=== PATIENT | female | born 1935 | race Caucasian/White ===

== ENCOUNTER 2018-04-11 00:38 | Inpatient (IN) ==
[2018-04-11] MEDS ORDERED: MORPHINE IV ONE ×2 (01:32→01:54)
[2018-04-11] MEDS ORDERED: ZOFRAN ONE ×2 (01:41→12:37)
[2018-04-11] MEDS ORDERED: ZOFRAN IV ONE (01:43)
--- NOTE | 2018-04-11 02:03 | PROVIDER DOCUMENTATION ---
This chart was entered by Karuna Mathew Scribe, acting as scribe for Amaury Nieto MD. HPI-Musculoskeletal Pain/Inj - GENERAL Chief Complaint: Head Injury Stated Complaint: fall Time Seen by Provider: 04/11/18 00:47 Source: patient - HX OF PRESENT ILLNESS-MUSKULOSKELTAL Nature of Presenting Problem: PT is 82/F presenting to ED via EMS. She was at home in her bathroom when her foot got stuck under her bathmat and she fell forward. Landing on her L knee and hitting her head. No LOC. C/O L knee pain at this time. Quality of Pain: reports: aching Severity in ED: severe Onset/Duration: just prior to arrival Timing: still present Modifying Factors: improves with: nothing Any recent injury?: Yes Locality of Occurance: Home Similar Symptoms Previously?: No Recently seen or treated by another doctor?: No - FALL INJURY Location of Pain/Injury: reports: lower extremity (L knee) Pain Radiation: reports: no radiation Reason for Fall: reports: lost balance Symptoms prior to fall:: reports: none Loss of Consciousness: no loss of consciousness Injury Associated Symptoms: reports: nausea. denies: vomiting Review of Systems - Adult - REVIEW OF SYSTEMS - ADULT Constitutional: reports: no symptoms reported Eyes: reports: no symptoms reported Ears, Nose, Mouth & Throat: reports: no symptoms reported Cardiovascular: reports: no symptoms reported Respiratory: reports: no symptoms reported Gastrointestinal: reports: nausea. denies: vomiting, other Genitourinary: reports: no symptoms reported Musculoskeletal: reports: no symptoms reported Integumentary: reports: no symptoms reported Neurological: reports: no symptoms reported. denies: dizziness/vertigo, headache/migraines Psychiatric: reports: no symptoms reported Endocrine: reports: no symptoms reported Hematologic/Lymphatic: reports: no symptoms reported Allergic/Immunologic: reports: no symptoms reported All Other Systems: Reviewed and Negative Past History - Adult - PAST MEDICAL HISTORY-ADULT Review of Records: reports: Old Records Reviewed, Nursing Assessment Review, Medications Reviewed, Social history reviewed & non-contributory. Major Childhood Illnesses: reports: denies history Cardiovascular: reports: HTN, hyperlipidemia Respiratory: reports: denies history Gastrointestinal: reports: denies history Obstetrical/Gynecological: reports: denies history Genitourinary: reports: kidney disease Musculoskeletal: reports: denies history Neurological: reports: denies history Psychiatric: reports: denies history Endocrine/Immune: reports: denies history Other Conditions: reports: denies history - PRIOR SURGERIES/PROCEDURES Surgical/Procedure History: reports: hysterectomy - PRIOR HOSPITALIZATIONS Prior Hospitalizations: reports: none - IMMUNIZATION STATUS Childhood Immunizations: See Nurse Assessment Flu Vaccine: See Nurse Assessment - FAMILY HISTORY Family History: reviewed, not pertinent - SOCIAL HISTORY Smoking: denies, non-smoker Provider spent 3-5 mins advising pt. on dangers of tobacco.: Discussed manners to quit use, and f/u contacts for add'l counseling. Substance Use: none/never Alcohol Use Frequency: never Physical Exam-Injury Related - Physical Exam-Injury Related Initial Vital Signs Reviewed: Yes General Appearance: appears well, alert, no apparent distress Eyes: PERRL/EOMI Head, Ears, Nose, Mouth & Throat: normocephalic/atraumatic, moist mucous membranes, normal ENT inspection, TMs normal Neck: non-tender, full range of motion, supple, normal inspection Respiratory: chest non-tender, lungs clear, normal breath sounds Cardiovascular: normal peripheral pulses, regular rate, rhythm, no edema Extremity: swelling, tenderness, other (L leg significantly swollen on medial side exquisitely tender to palpation, limited ROM due to pain. local erythema extending to mid thigh.) Progress - PLAN OF CARE/RESULTS Progress/Plan/Lab Results: Vital Signs - 8 hr 04/11/18 00:53 Temperature 98.9 F Pulse Rate 62 Respiratory Rate 20 Blood Pressure 167/71 O2 Sat by Pulse Oximetry 98 Orders Category Date Time Status Knee Immobilizer .left Care 04/11/18 01:56 Active NPO Diet 04/11/18 01:[address] HEAD/C-SPINE W/O CONTRAST [CT] Stat Exams 04/11/18 00:36 Taken KNEE 3 VIEWS LEFT [RAD] Stat Exams 04/11/18 00:43 Taken Morphine Med 04/11/18 01:32 Discontinued 4 mg IV NOW ONE Morphine Med 04/11/18 01:54 Discontinued 4 mg IV NOW ONE Ondansetron [Zofran] Med 04/11/18 01:41 Discontinued 4 mg .ROUTE .STK-MED ONE Ondansetron [Zofran] Med 04/11/18 01:43 Discontinued 4 mg IV NOW ONE A/P: Pt fell has severely angulated distal femur fracture abuts to patella comminuted . Dr Reid was notfied and will admit to hospital service and do surgery in am. Patient vitals stable, pain controlled and given zofran for N/V. - XRAY 1 XRAY: Left XRAY Study: Knee Impression: Abnormal (read by ER doc, severely angulated distal femur fx. buts up to patella, communited) - CT/MRI 1 CT Study: Head Impression: Normal (1.no acute intracranial findings, 2.Minor right forehead soft tissue swelling cervical spine without contrast: 1. Degenerative changes of cervical spine with no acute fracture) - CONSULTS/PCP/HOSPITALIST Notification #1 *Consult/PCP/Hospitalist*: Dr. Rush (Ortho) Time Discussed: 00:45 Reason/Comments: Pt will be admitted Consult Disposition: Admit #2 Consult: Dr Do Time Discussed: 00:56 Consult Disposition: Admit Departure - Departure Date of Disposition Decision: 04/11/18 Time of Disposition Decision: 02:03 DIAGNOSIS: Femoral distal fracture Disposition: ADMITTED INPATIENT 09 Certified Medical Emergency: Emergent Condition: Stable Additional Freetext Instructions: We have examined and treated you today on an emergency basis only. This was not a substitute for, or an effort to provide, complete medical care. In most cases, you must let your doctor check you again. Tell your doctor about any new or lasting problems. We cannot recognize and treat all injuries or illnesses in one Emergency Department visit. If you had special tests, such as X-rays or CT scans, will be reviewed by radiologist and will call you if there are any new suggestions Follow up with primary care provider in 1 to 2 days if no improvement. If you do not have a primary care provider, you need to choose one as soon as possible. Take medicines as prescribed. Monitor for any side effects or adverse events from medications. If any side effect, adverse event or rash develops, or if you suspect any other adverse reaction to the medication, then discontinue the medication immediately and contact clinic /PCP or go to the nearest ER. Narcotic meds / sedative meds instruction - patent advised not to drive, operate any machinery or go into water after taking meds as it may impair mental ability to react to the situation in an appropriate manner. Continue other current medicines. Follow up with PCP within 24-48 hours, or sooner if symptoms worsen or fail to improve. Patient / guardian verbalizes understanding of treatment plan, medication, and side effects and agrees with treatment plan. Patient leaves ER in stable condition and ambulatory state. Return to ER as needed. Discharge instructions reviewed verbally and given to patient in written form. Follow up with primary care provider. Referrals and Follow-Ups: Bello Neri MD [Primary Care Provider] - - Critical Care Note This patient required my direct & personal management of CC.: No Attestation - Physician/ ONEAL Attestation Patient care was provided by Advanced Practice Provider:: No The physician spent face to face time with patient:: Yes Advanced Practice Provider documentation review:: Supervising physician onsite and consulted in the evaluation and care of this patient. The physician did have a face to face encounter with the patient. This chart was documented by the indicated scribe, (Karuna Mathew, Scribe) and accurately reflects the services I performed and decisions made by me, Amaury Nieto MD, as attested by the provider's signature.
[2018-04-11] MEDS ORDERED: VERSED IV ONE ×2 (02:08→02:30)
[2018-04-11] MEDS ORDERED: VERSED ONE (02:21)
[2018-04-11 03:06] LABS: URINE SOURCE CATH
[2018-04-11 03:10] LABS: BASO# 0.07 X1000 (0.0-0.2); BASO% 0.4 % (0.0-0.8); EOS# 0.29 X1000 (0.0-0.7); EOS% 1.7 % (0.0-10.0); HEMATOCRIT 38.6 % (37.0-47.0); HEMOGLOBIN 12.3 g/dL (12.0-16.0); IMM GRAN# 0.24 X1000 (0.0-0.04); IMM GRAN% 1.4 % (0.0-0.5); LYMPH# 2.93 X1000 (1.2-3.4); LYMPH% 16.7 % (20.5-51.1); MCH 28.7 PG (27-31); MCHC 31.9 g/dL (33-37); MCV 90.2 FL (81-99); MONO% 6.8 % (1.7-9.3); MPV 9.8 FL (7.4-10.4); PLT 270 X1000 (130-400); RBC 4.28 XMIL (4.2-5.4); RDW 13.3 % (11.5-14.5); WBC 17.53 X1000 (4.8-10.8)
[2018-04-11 03:17] LABS: INR 0.92; PROTIME 13.1 Seconds (11.0-16.0)
[2018-04-11 03:18] LABS: BILIRUBIN URINE NEGATIVE (NEGATIVE); BLOOD URINE NEGATIVE (NEGATIVE); COLOR YELLOW; GLUCOSE URINE NEGATIVE (NEGATIVE); KETONE URINE NEGATIVE (NEGATIVE); LEUKOCYTES URINE TRACE (NEGATIVE); NITRITE URINE NEGATIVE (NEGATIVE); PH URINE 6.5; PROTEIN URINE 100 mg/dL (NEGATIVE); SP GRAVITY URINE 1.016; TURBIDITY URINE CLEAR (CLEAR); UR EPITHELIAL CELLS <10 /HPF (<10); URINE BACTERIA NEGATIVE /HPF; URINE RBC <10 /HPF (<10); URINE WBC <10 /HPF (<10); UROBILINOGEN URINE NORMAL (NORMAL)
[2018-04-11 03:36] LABS: ALBUMIN 3.6 g/dL (3.5-5.0); CALCIUM 9.2 mg/dL (8.8-10.2); CREATININE 1.2 mg/dL (0.5-0.9); POTASSIUM 5.1 mmol/L (3.5-5.1); TOTAL BILIRUBIN 0.21 mg/dL (0.20-1.00); TOTAL PROTEIN 7.2 g/dL (6.3-8.3)
[2018-04-11] MEDS ORDERED: POTASSIUM CHLORIDE 10 MEQ in NS 1,000 ML IV SCH (03:38)
[2018-04-11] MEDS ORDERED: TYLENOL PO PRN (03:38)
[2018-04-11] MEDS ORDERED: ZOFRAN IV PRN (03:38)
[2018-04-11] MEDS ORDERED: TESSALON PO PRN (03:38)
[2018-04-11] MEDS: DILAUDID IV PRN ×4 (03:57→19:07)
[2018-04-11 04:01] LABS: PTT 26.9 Seconds (22.3-41.8)
--- NOTE | 2018-04-11 04:38 | HISTORY AND PHYSICAL ---
PHYSICIAN: Patient of Dr. Bello Neri. REASON FOR ADMISSION: Fall with subsequent left thigh pain. HISTORY OF PRESENT ILLNESS: Ms. Ngoc Beavers is an 82-year-old lady with past medical history of vascular dementia, hypertension, hyperlipidemia, CKD stage 3, type 2 diabetes , prior TIA, ulcerative colitis. States that she was trying to make her way to the bathroom when she tripped over one of her rugs and landed directly on her knee with subsequent intense pain just above her knee a few seconds after landing on the floor. Says the pain is sharp. She rates it as a 15 out of 10 and states that she had a Life Alert bracelet on and contacted the EMS via that bracelet. She said she has been in the ER she has received 8 mg of morphine and her pain is still above 10. She denies any contact of her head with the floor, any loss of consciousness, any antecedent cardiorespiratory symptoms. She otherwise was in her usual state of health prior to this injury. REVIEW OF SYSTEMS: Notable for urge incontinence. She has no diarrhea or abdominal complaints at this time. No polyuria or polydipsia. No cardiorespiratory complaints. ALLERGIES: No known allergies. MEDICATIONS: Home medications include Lipitor 10 mg daily, Tessalon 200 mg t.i.d., Fioricet 1 q.4 p.r.n., Omnicef 200 mg q.12, Flexeril 10 mg t.i.d., Cymbalta 60 mg daily, Hydromet 5 mL q.4 p.r.n., Hyzaar 50/12.5 mg daily, Singulair 10 mg daily, Macrobid 100 mg q.12, potassium gluconate 99 mg daily. SURGICAL HISTORY: Breast lump excision which was benign, cataract surgery, right hand surgery, hysterectomy, cholecystectomy. FAMILY HISTORY: Notable for breast cancer and heart disease in first-degree relatives. SOCIAL HISTORY: She stopped smoking over 5 years ago. No alcohol or illicit drug use. Lives alone. LAB WORK: Still pending as of this time, but knee x-ray showed an angulated fracture of the distal femur just above the knee. The head CT without contrast does not show any acute intracranial bleed. There is some degree of cerebral atrophy otherwise. C- spine read by me. I did not visualize any overt fracture. EKG was ordered and is still pending. PHYSICAL EXAMINATION: VITAL SIGNS: Blood pressure 167/71, heart rate 62, respirations 20, temperature is 98.9, 98% on 2 L. GENERAL: She is a pleasant, overweight elderly woman who is in mild distress from her pain. She is oriented to person, place and time. HEENT: Head is normocephalic, atraumatic. Eyes: PERRL. EOMI. She is anicteric and mildly pale. ENT and oropharynx exam is grossly normal. No sign of cyanosis. NECK: Short and thick. No JVD or carotid bruit. No thyromegaly CHEST: Clear when auscultated with good entry in both lung caba. CARDIOVASCULAR: First and second heart sounds heard. There is a 3/6 systolic murmur radiating to the neck. Rhythm is regular. ABDOMEN: Protuberant, soft. No tenderness or megaly. Bowel sounds are normal with an abdominal bruit heard. EXTREMITIES: The patient's left lower extremity has some sheets underneath her popliteal area. I do not see any overt bleeding on the anterior portion of her thigh and knee. She is able to wiggle her toes, but she is in excruciating pain when she tries to do any other movement. There are very good distal pulses in all extremities and they are regular, symmetrical. No clubbing, peripheral cyanosis or edema. NEUROLOGICAL: No gross focal deficits although left lower extremity could not be fully examined for obvious reasons. SKIN: Intact with no breakdown, lesion or erythema. MUSCULOSKELETAL: Exam essentially normal otherwise. ASSESSMENT: 1. Distal left femur fracture. 2. Type 2 diabetes. 3. Aortic stenosis. 4. Hypertension. 5. Probable chronic kidney disease. 6. Ulcerative colitis, stable. 7. Hyperlipidemia. PLAN: Dr. Rush was consulted and wants knee immobilized. We will switch patient from morphine to Dilaudid for better pain control. Patient's lab work is still pending as of this time and if there are any gross abnormalities these will be addressed accordingly. EKG is pending. Diabetes will be managed with sliding scale. Continue antihypertensives. Although patient has aortic stenosis, she does not have any symptoms suggestive of heart failure at this point in time. Monitor patient's labs closely and her cardiovascular status preoperatively. cc: MD Bello Rodriguez MD [facility]
--- NOTE | 2018-04-11 06:15 | Diag Imaging Result Doc PS360 ---
EXAM: KNEE 3 VIEWS LEFT HISTORY: fall TECHNIQUE: Left knee, three views COMPARISON: None. FINDINGS: There is a comminuted fracture to the distal femur with compaction. There is angulation of approximately 45 degrees to the shaft and the femoral condyles. IMPRESSION: Fracture to the distal femur Electronically signed by Cliff Matson 04/11/2018 6:13 AM
--- NOTE | 2018-04-11 06:35 | CONSULTATION ---
DATE OF CONSULTATION: 04/11/2018 CHIEF COMPLAINT: Left knee pain. HISTORY OF PRESENT ILLNESS: Ms. Beavers is an 82-year-old female who fell last night. She ended up presenting to the emergency department where they did x-rays and they found a distal femur fracture. She was admitted per the hospitalist service. Most of her pain is at the knee. It is worse with any movement. It does feel better when she is off of it. PAST MEDICAL HISTORY: Chronic kidney disease, hyperlipidemia, hypertension, vascular dementia, type 2 diabetes, and ulcerative colitis. PAST SURGICAL HISTORY: Cataract surgery, she had a right hand surgery, hysterectomy, cholecystectomy, and a lump excision from the breast. SOCIAL HISTORY: She stopped smoking about 5 years ago. She denies any alcohol or nicotine use at this point. MEDICATIONS: Per the medical record. ALLERGIES: No known drug allergies. REVIEW OF SYSTEMS: Positive for this left knee pain. All other systems are essentially negative. PHYSICAL EXAMINATION: General: A well-developed, well-nourished female. She is in no acute distress, lying in her hospital bed. Head and Neck: Normocephalic, atraumatic. Respirations: Nonlabored breathing. Cardiovascular: Regular rate. Abdomen: Nondistended. Extremities: On left lower extremity exam, she has tenderness to palpation at the knee. She has good dorsiflexion and plantar flexion of the toes and the foot, and a 2+ DP pulse. Good sensation to light touch to the toes. RADIOGRAPHS: Radiographs show a left distal femur fracture that is angulated and somewhat shortened. ASSESSMENT: Left distal femur fracture. PLAN: I discussed with Ms. Beavers about going to surgery today for an open reduction and internal fixation. I went over with her the procedure, risks, benefits, and potential complications. Risks include, but are not limited to infection, wound healing problems, damage to nerves, arteries, veins, numbness, malunion, nonunion, hardware related issues, continued pain, DVT, and anesthesia related risks. After discussing these with the patient, she expressed understanding and wished to proceed. She is n.p.o. today and we will hopefully get this done around noon today. She is nonweightbearing to the left lower extremity. cc: Jamir Rush MD
[2018-04-11] MEDS: HUMALOG SUBQ SCH ×4 (06:42→21:31)
--- NOTE | 2018-04-11 07:18 | Diag Imaging Result Doc PS360 ---
EXAM: CT HEAD/C-SPINE W/O CONTRAST INDICATION: fall TECHNIQUE: This exam was performed using automated exposure control, adjustment of mA or kV according to patient size, and/or use of iterative reconstruction technique. COMPARISON: None. FINDINGS: Head: There is mild diffuse brain atrophy and patchy low attenuation in the periventricular and subcortical white matter suggesting mild microangiopathy. There is no definite acute infarct given the limited sensitivity of CT versus MRI. There is no discrete intracranial mass, mass effect, or intracranial hemorrhage. There is mild scalp edema anteriorly on the right. The calvaria is intact. C-spine: There is multilevel mild to moderate degenerative disc disease with loss of disc space height and small marginal osteophyte formation, most significant at and below the C5-6 level. There is also facet arthropathy at several levels. This is causing mild anterolisthesis of C3 on C4 and C4 on C5. The central canal appears to be largely patent. Otherwise, there is no discrete fracture, subluxation, or intrinsic osseous lesion. The surrounding soft tissues are essentially unremarkable. IMPRESSION: 1.No evidence of acute intracranial pathology. 2.[id number] degenerative changes but no evidence of fracture or other definite acute C-spine injury. Electronically signed by Norman Akins 04/11/2018 7:15 AM
--- NOTE | 2018-04-11 07:32 | EKG Report ---
Test Performed on : 04/11/2018 07:25:12 AM Test Reason : aortic stenosis preop Blood Pressure : / mmHG Vent. Rate : 107 BPM Atrial Rate : 107 BPM P-R Int : 170 ms QRS Dur : 074 ms QT Int : 334 ms P-R-T Axes : 050 -07 064 degrees QTc Int : 445 ms Sinus tachycardia. Otherwise normal ECG When compared with ECG of 10-FEB-2016 10:45, Vent. rate has increased BY 38 BPM T wave amplitude has increased in Inferior leads T wave amplitude has increased in Anterolateral leads Confirmed by Antonio GRAHAM, Mansoor Souza ([id number]) on 04/11/2018 8:54:19 AM
[2018-04-11] MEDS ORDERED: POTASSIUM GLUCONATE 99 MG PO SCH (09:00)
[2018-04-11] MEDS: CYMBALTA PO SCH (10:51)
[2018-04-11] MEDS: LIPITOR PO SCH (10:52)
[2018-04-11] MEDS: HYZAAR 50/12.5 MG PO SCH (10:52)
[2018-04-11] MEDS ORDERED: XYLOCAINE-MPF 2% ONE (11:05)
[2018-04-11] MEDS ORDERED: DIPRIVAN 1% ONE (11:05)
[2018-04-11] MEDS: NS 1,000 ML IV SCH (11:13)
--- NOTE | 2018-04-11 11:14 | PROGRESS NOTE ---
DATE: 04/11/2018 SUBJECTIVE: This morning Ms. Beavers refers to be doing fairly okay. She has 2 family members in the room with her. Both of them are her in nieces. OBJECTIVELY: Vitals: Ms. Beavers's blood pressure is 98/54, pulse is 109, respiration is 90%, temperature 98.1 degrees. General: Ms. Beavers is an 82-year-old morbidly obese, female, with a BMI of 32. She is in bed, no distress. HEENT: Mucosa is pink and moist. Anicteric. Acyanotic. Neck: Neck is supple. Chest: Good air entry bilaterally. There are no crepitations, no rhonchi. Cardiovascular: Regular rate and rhythm. No murmurs, no rubs, no gallops. Abdomen: Soft, nontender. Bowel sounds present. Extremities: No pedal edema. The left knee continues to be in orthopedic cast. SOCIAL SERVICES ANALYST: Patient is awake and alert. Follows basic commands. She was able to recognize her nieces. LABORATORY DATA: WBC 17.53, hemoglobin is 12.3, platelet count of 270,000. Chemistry is also reviewed. Creatinine is 1.2. Medications have also been reviewed. IMAGING: A knee x-ray which was done early this morning shows a fracture to the distal femur. ASSESSMENT: 1. Status post mechanical fall resulting in a distal left femur fracture with angulation. Patient has been evaluated by Orthopedics and there is a plan for ORIF today. 2. Chronic kidney disease stage IIIA noted. 3. History of diabetes mellitus. We will continue with sliding scale insulin for now. We will also check the patient's A1c. 4. Hypertension, controlled. 5. History of ulcerative colitis, stable. 6. Mild aortic stenosis on echo. Patient is currently asymptomatic. 7. Morbid obesity with suspected obstructive sleep apnea. PLAN: So in general, Ms. Taylor is an elderly lady who has been fairly self- sufficient and independent at home, sustained a fall last night, came to the emergency department and was found to have a distal angulated fracture of the left distal femur, and she is pending surgery today. She definitely has multiple comorbidities, including diabetes, hypertension, obesity, suspected sleep apnea, and mild aortic stenosis, which puts her at moderate to high surgical risk candidate for a nonvascular orthopedic intervention. However, we think the surgery is emergent and needs to proceed. I have discussed this plan with the patient and the 2 nieces at the bedside, and they are all aware about the patient's surgical risk. They also do approve the surgery. cc: Dale Suresh MD MTDD
[2018-04-11] MEDS ORDERED: XYLOCAINE 1% ONE (11:16)
[2018-04-11] MEDS ORDERED: MARCAINE 0.5% ONE (11:17)
[2018-04-11] MEDS ORDERED: ROBINUL ONE (11:19)
[2018-04-11] MEDS ORDERED: KEFZOL 2 GM/D5W 2 GM/50 ML IVPB ONE (12:06)
[2018-04-11] MEDS ORDERED: DECADRON ONE (12:37)
--- NOTE | 2018-04-11 13:46 | OPERATIVE NOTE ---
PROCEDURE DATE: 04/11/2018 PREOPERATIVE DIAGNOSIS: Left supracondylar/intercondylar femur fracture. POSTOPERATIVE DIAGNOSIS: Left supracondylar/intercondylar femur fracture. PROCEDURE: Left open reduction-internal fixation distal femur. SURGEON: Dr. Jamir Rush. CORPORATE RECEPTIONIST: SULMA Torre who was an integral part of the case. She helped with all aspects of the case. She helped increase our OR efficiency greatly. ANESTHESIA: General with LMA. TOURNIQUET TIME: Less than an hour. IMPLANTS: Synthes distal femur condylar locking plate and screws. DISPOSITION: PACU hemodynamically stable. INDICATION FOR PROCEDURE: Ms. Taylor, an 82-year-old female who suffered a fall and distal femur fracture. She was admitted per the hospitalist service. I discussed with her and her family about operative intervention. They expressed their understanding wished to proceed. DETAILS OF OPERATION: Ms. Beavers was identified in the preoperative holding area. The left knee was marked as the correct surgical site. She was then wheeled to the operating room, placed supine on the operating table. All bony prominences well padded. She was induced under general anesthesia. LMA was placed. Left lower extremity was then prepped with chlorhexidine, gluconate scrub and then ChloraPrep, and draped in normal sterile fashion. Surgical pause was performed. We identified the correct patient, correct side, and the correct procedure. Preop antibiotics were given. Esmarch was used to exsanguinate the left lower extremity and a sterile tourniquet was applied to the thigh and inflated to 300 mmHg. I started with a distal incision laterally at the knee. Dissection was carried down through the IT band and could easily identify our fracture site. I did subvastus approach and ended up pulling some good traction and that helped align those condyles back up where they needed to be. There was an intercondylar split, but her joint line overall lined up great. So after we got it out to length and alignment everything looked good, I then put the plate on and secured it temporarily with guidewires. I then started with the big middle screw on the condylar locking plate to really lag in that medial condyle, and after we got that lagged in, then we did a locking screws distally and then I did a combination of locking and nonlocking screws proximally. Final images showed that we had good alignment. There is just a little bit of a spike off of the medial condyle. The joint itself actually looked really good. Lateral view looked great as well. We got her out of her flexed position. All the hardware looked to be in good position as well. We then irrigated everything copiously with normal saline. 0 Vicryl was used to close the fascia layer, 2-0 Vicryl for the subcutaneous and gilmer on the skin. Adaptic, 4x4s, ABD, soft roll, and a knee immobilizer was applied. Tourniquet was let down. Patient had good capillary refill return to the toes. She was then wheeled from general anesthesia, moved to her own bed and taken to the PACU in stable condition. Postop, she will be nonweightbearing left lower extremity. She will start working with physical therapy, getting up and moving while in the hospital and we will continue to follow her. cc: Jamir Rush MD
[2018-04-11] MEDS: TYLENOL PO SCH ×2 (15:05→21:30)
[2018-04-11] MEDS: KEFZOL 1 GM/D5W 1 GM/50 ML IVPB IV SCH (20:00)
[2018-04-11] MEDS: OXY IR PO PRN (21:29)
[2018-04-11] MEDS: COLACE PO SCH (21:30)
[2018-04-12] MEDS: DILAUDID IV PRN ×2 (00:37→05:44)
[2018-04-12] MEDS: KEFZOL 1 GM/D5W 1 GM/50 ML IVPB IV SCH ×2 (05:17→12:50)
[2018-04-12] MEDS: NS 1,000 ML IV SCH ×3 (05:18→21:52)
[2018-04-12 06:22] LABS: BASO# 0.02 X1000 (0.0-0.2); BASO% 0.1 % (0.0-0.8); HEMATOCRIT 32.2 % (37.0-47.0); HEMOGLOBIN 9.9 g/dL (12.0-16.0); IMM GRAN# 0.15 X1000 (0.0-0.04); IMM GRAN% 0.9 % (0.0-0.5); LYMPH# 2.25 X1000 (1.2-3.4); LYMPH% 13.9 % (20.5-51.1); MCH 28.6 PG (27-31); MCHC 30.7 g/dL (33-37); MCV 93.1 FL (81-99); MONO# 1.91 X1000 (0.11-0.59); MONO% 11.8 % (1.7-9.3); MPV 9.8 FL (7.4-10.4); NEUT# 11.87 X1000 (1.4-6.5); NEUT% 73.3 % (42.2-75.2); PLT 249 X1000 (130-400); RBC 3.46 XMIL (4.2-5.4); RDW 13.7 % (11.5-14.5)
[2018-04-12 07:06] LABS: CALCIUM 7.9 mg/dL (8.8-10.2); CREATININE 2.2 mg/dL (0.5-0.9); POTASSIUM 5.3 mmol/L (3.5-5.1)
[2018-04-12] MEDS: TYLENOL PO SCH ×3 (07:17→21:51)
--- NOTE | 2018-04-12 08:01 | PROGRESS NOTE ---
DATE: 04/12/2018 SUBJECTIVE: Ms. Beavers is lying in the bed this morning. Overall feeling okay. OBJECTIVE: On left lower extremity exam, the brace is intact to the left knee. Dressing is clean, dry, and intact. She is able to move the toes up and down. She has good sensation to light touch to the toes. ASSESSMENT: Status post left distal femur open reduction and internal fixation. PLAN: Ms. Beaevrs is nonweightbearing to the left lower extremity. I do want her to mobilize today, get out of bed. The Claudio should come out today as well. I am going to get her up and moving. She does have chronic kidney disease and so the medicine team will be watching that. We will plan on her being nonweightbearing for about a month at least on this knee. More than likely, it will be 6 weeks. cc: Jamir Rush MD
[2018-04-12] MEDS: HUMALOG SUBQ SCH ×4 (09:03→21:53)
--- NOTE | 2018-04-12 10:07 | PROGRESS NOTE ---
DATE: 04/12/2018 SUBJECTIVE: Ms. Beavers is a patient of Dr. Bello Neri. She had a fall with subsequent left thigh pain and presented on 04/11/2018 with distal left femur fracture. She has underlying diabetes mellitus type 2, aortic stenosis, hypertension, probable chronic kidney disease, ulcerative colitis and hyperlipidemia. She was followed by Dr. Rush who did surgery on 04/11/2018, left open reduction, internal fixation of distal femur. She is making good progress. The [facility]. OBJECTIVE: Vitals: Temperature 98.4 degrees, pulse 80, respirations 20, blood pressure 123/54. Eyes: Pupils are equal and round. Lungs: Clear in all lung caba. Cardiovascular: Regular rhythm and rate without murmur or S3. Abdomen: Soft. Skin: Warm and dry. URINE OUTPUT: Less than 700 mL. ASSESSMENT AND PLAN: 1. Status post mechanical fall resulting in a distal femur fracture, status post open reduction, internal fixation. The fracture had some angulation. Continue rehab. Hope to go to [facility] for rehab. 2. Chronic kidney disease, stage 3A. 3. Diabetes mellitus type 2. Continue to follow sugars on sliding scale. 4. Hypertension. 5. History of ulcerative colitis. 6. Mild aortic stenosis per echocardiogram. Currently asymptomatic. 7. Morbid obesity. Suspect some obstructive sleep apnea. She has been self-sufficient and independent at home, so we are hoping to get her back to that. Her family was here. She had a distal angulated fracture of the left distal femur. 8. Review of her orders, I do not see any change. cc: Edwin Gurrola MD
[2018-04-12] MEDS: CYMBALTA PO SCH (10:28)
[2018-04-12] MEDS: OXY IR PO PRN ×3 (10:28→21:51)
[2018-04-12] MEDS: LIPITOR PO SCH (10:28)
[2018-04-12] MEDS: HYZAAR 50/12.5 MG PO SCH (10:29)
--- NOTE | 2018-04-12 17:49 | Diag Imaging Result Doc PS360 ---
EXAM: CHEST-PORTABLE 04/12/2018 HISTORY: REHAB PLACEMENT TECHNIQUE: AP portable at 1702 COMMENT: Considering differences in technique there has been no significant change since 01/12/2018. IMPRESSION: Stable chest. Electronically signed by Jeremy Lopez 04/12/2018 5:47 PM
[2018-04-12] MEDS: COLACE PO SCH (21:52)
[2018-04-13] MEDS: NS 1,000 ML IV SCH ×2 (03:53→10:50)
[2018-04-13 06:15] LABS: HEMATOCRIT 27.6 % (37.0-47.0); HEMOGLOBIN 8.7 g/dL (12.0-16.0)
[2018-04-13] MEDS: HUMALOG SUBQ SCH ×4 (07:00→22:47)
[2018-04-13] MEDS: TYLENOL PO SCH ×3 (08:15→21:09)
[2018-04-13] MEDS: LIPITOR PO SCH (09:00)
[2018-04-13] MEDS: HYZAAR 50/12.5 MG PO SCH (09:01)
[2018-04-13] MEDS: CYMBALTA PO SCH (09:01)
--- NOTE | 2018-04-13 11:03 | PROGRESS NOTE ---
DATE: 04/13/2018 SUBJECTIVE: Ms. Taylor is resting comfortably. She was easy to arouse. She is making progress, tolerating physical therapy. OBJECTIVE: Vital Signs: Temperature 99.4 degrees, pulse 100, respirations 19, blood pressure 153/52. Urine output 6300 mL. HEENT: Pupils are equal and round. Lungs: Clear in all lung caba. Cardiovascular: Regular rhythm and rate without murmur or S3. Abdomen: Soft. Skin: Warm, dry. LABORATORY DATA: Blood sugar 181, 131, 149. DIAGNOSTIC STUDIES: Chest x-ray: Stable chest. No significant change from 01/12/2018. ASSESSMENT AND PLAN: 1. Status post mechanical fall resulting in distal femur fracture, status post open reduction and internal fixation. It was an angulated fracture. She is doing well. Plan is to go [facility] if a place opens up. 2. Chronic kidney disease stage IIIA. 3. Hypertension. 4. Ulcerative colitis. 5. Mild aortic stenosis. Currently asymptomatic. 6. Morbid obesity. She does have history of obstructive sleep apnea. The plan is to try and get her to [facility] and possibly an opening tomorrow. Will continue present orders. cc: Edwin Gurrola MD
[2018-04-13] MEDS: COLACE PO SCH (21:09)
[2018-04-14 06:47] LABS: HEMATOCRIT 27.6 % (37.0-47.0); HEMOGLOBIN 8.7 g/dL (12.0-16.0)
[2018-04-14] MEDS: HUMALOG SUBQ SCH ×2 (07:03→13:37)
[2018-04-14] MEDS: TYLENOL PO SCH ×2 (07:03→13:49)
[2018-04-14 08:17] LABS: URINE SOURCE CLEAN CATCH
[2018-04-14 08:19] LABS: BILIRUBIN URINE NEGATIVE (NEGATIVE); BLOOD URINE NEGATIVE (NEGATIVE); COLOR YELLOW; GLUCOSE URINE NEGATIVE (NEGATIVE); KETONE URINE NEGATIVE (NEGATIVE); LEUKOCYTES URINE NEGATIVE (NEGATIVE); NITRITE URINE NEGATIVE (NEGATIVE); PH URINE 6.5; PROTEIN URINE 30 mg/dL (NEGATIVE); TURBIDITY URINE CLEAR (CLEAR); UROBILINOGEN URINE NORMAL (NORMAL)
[2018-04-14 08:20] LABS: UR EPITHELIAL CELLS <10 /HPF (<10); URINE BACTERIA NEGATIVE /HPF; URINE RBC <10 /HPF (<10); URINE WBC <10 /HPF (<10)
--- NOTE | 2018-04-14 08:53 | DISCHARGE SUMMARY ---
ADMISSION DATE: 04/11/2018 DISCHARGE DATE: 04/14/2018 PRIMARY CARE PROVIDER: Dr. Bello Neri. HOSPITAL COURSE: This is an 82 year old with past medical history of vascular dementia, hypertension, hyperlipidemia, chronic kidney disease stage III, type 2 diabetes, prior TIA, ulcerative colitis, who states that she was trying to make her way to the bathroom when she tripped over 1 of the rugs and landed directly on her knee. Subsequently, intense pain just above her knee for a few seconds, landing on the floor. She says her pain was sharp, radiated. She had a Life Alert bracelet. EMS were called. In the ER she received 8 mg morphine because the pain was still pretty severe. So, admitted to the hospital. Dr. Rush evaluated, found a left distal femur fracture and took her for open reduction, internal fixation. She seemed to do well. Postop uneventful. Chest x-ray on 04/12: Stable chest,no infiltrate. She did complain of a little burning when she passed water on the day of discharge, so we will send urine, empirically treat her for possible urinary tract infection, but white count initially 17,000. On the twelfth, it was 16,200. [place] she could go to rehab on 04/14/2018. DISCHARGE MEDICATIONS: 1. Lipitor 10 mg a day. 2. Tessalon Perles 200 mg t.i.d. 3. Cymbalta 60 mg a day. 4. Hyzaar 50/12.5 one a day and give her the OxyIR 5 mg p.o. q. 3 hours p.r.n. 5. I will put her on some Cipro 500 mg twice a day for 7 days. cc: Edwin Gurrola MD
[2018-04-14] MEDS: LIPITOR PO SCH (09:37)
[2018-04-14] MEDS: HYZAAR 50/12.5 MG PO SCH (09:37)
[2018-04-14] MEDS: CYMBALTA PO SCH (09:37)
[2018-04-14 12:28] VITALS: BP 154/77
[2018-04-14] MEDS: OXY IR PO PRN (13:40)
== END 2018-04-14 13:55 | DRG 482 ==
LOC: SUPCPDRO → ED 00:38 → SUATTDRO 03:33 → 4N 03:33
PROVIDERS: ATTEND Emergency Medicine
CPT/HCPCS: 70450; 71010; 71045; 72125; 73562; 76000; 80048; 80053; 81001; 82948; 85014; 85018; 85025; 85610; 85730; 86850; 86900; 86901; 87088; 93005; 93010; 94761; 94799; 96374; 96375; 97110; 97162; 97530; 99285; A9270; J0690; J1100; J1170; J1815; J2250; J2270; J2405; J3480; J7030; S0020; XXXXX